=== PATIENT | female | born 1960 | race Caucasian/White ===

== ENCOUNTER 2016-10-20 14:56 | Emergency (ER) | payer SELFPAY ==
[2016-10-20 15:34] VITALS: BP 128/71; PULSE 75; RESP 12; TEMP 98.2; O2SAT 99
--- NOTE | 2016-10-20 16:58 | UCPHY ---
H & P Time Seen by Provider: 10/20/16 16:15 Patient Type: New HPI/ROS: This patient presents with a chief complaint of hearing loss in the left ear which began yesterday evening. She has had some intermittent tenderness in some headache but she denies any URI symptoms such as nasal congestion, sore throat or ear pain. She has noticed that when she chews that she hears it in the opposite right ear but not on the left. Smoking Status: Never smoked Physical Exam: This is a well-developed well-nourished female who is in no acute distress. She is alert, lucid and cooperative. She has normal gait and speech pattern. Pharynx: Normal Nose: Normal Ears: Both auditory canals are widely patent. There is no erythema of the tympanic membranes or any other abnormality that I can appreciate. Maricarmen Oropeza tests lead to a conclusion of sensory neural loss on the left. Constitutional: Initial Vital Signs Temperature (C) 36.8 C 10/20/16 15:28 Heart Rate 75 10/20/16 15:28 Respiratory Rate 12 10/20/16 15:28 Blood Pressure 128/71 H 10/20/16 15:28 O2 Sat (%) 99 10/20/16 15:28 O2 Delivery Mode Room Air Medical Decision Making ED Course/Re-evaluation: I spoke with the PA with [facility] who assures me they can see this patient in the office on Saturday and that treatment with steroids can wait up to 2 weeks. I prefer not to start high-dose steroids at this time. Differential Diagnosis: This patient appears to have a sensory neural hearing loss on the left. The cause at this time is unknown. Departure - Departure Disposition: Home, Routine, Self-Care Clinical Impression: Acute hearing loss of left ear Condition: Good Instructions: Hearing Loss (ED) Additional Instructions: It is important that he follow up with the ear nose and throat office which is listed be low. When you talk with them tell them that you have acute hearing loss and that I have spoken with them concerning your problem. Referrals: [facility] [Provider Group] - As per Instructions Geo Gates MD [Medical Doctor] - As per Instructions - PQRS PQRS Measurement: Not applicable
== END 2016-10-20 17:02 | disposition home or self-care (01) ==
LOC: CED 14:56
DX: H91.92 Unspecified hearing loss, left ear (principal)
CPT/HCPCS: 99203-PO; G0463-PO

== ENCOUNTER 2017-02-24 12:17 | Emergency (ER) | payer OTHER ==
[2017-02-24 12:30] VITALS: BP 126/89; PULSE 95; RESP 18; TEMP 98.2; O2SAT 96
--- NOTE | 2017-02-24 12:41 | EDPHY ---
H & P Time Seen by Provider: 02/24/17 12:32 HPI/ROS: This patient reports sore throat of 24 hours duration after being exposed to someone who was sick with sore throat in [place] last week. She is concerned about potential strep and came in for evaluation. She states the pain was moderate to severe last night, partial relief from Tylenol and over-the -counter throat spray. This morning it is 5/10 intensity. She notes no other associated symptoms except for mild coryza. No other exacerbating or alleviating factors besides what is mentioned above. ROS: Constitutional: No fevers or chills HEENT: No sinus pain or pressure, no ear pain. She has chronic left-sided sensorineural hearing loss that is unchanged Pulmonary: No cough GI: No nausea or vomiting Integumentary: No skin rash 5 point ROS is otherwise negative Past Medical/Surgical History: Sensorineural hearing loss Smoking Status: Never smoked Physical Exam: Physical Exam Vital signs are normal. General: No acute distress HEENT: Nose: Clear discharge bilaterally. No sinus tenderness to percussion. Ears: External canals and tympanic membranes are clear with no erythema or abnormal findings bilaterally. Oropharynx: No erythema or exudates. No dysphonia. No drooling or stridor. Eyes: Pupils equal and react to light. Extraocular motions are intact. Neck: Supple with no meningismus. No lymphadenopathy Lungs: Clear to auscultation bilaterally with no rales, rhonchi or wheeze. No respiratory distress. Cardiac: Regular rate and rhythm with no murmur gallop or rub Skin: No rash or pallor. Neuro: Alert with no focal deficits noted. Initial differential diagnosis: URI with sore throat from postnasal drip, viral pharyngitis, strep pharyngitis Constitutional: Initial Vital Signs Temperature (C) 36.8 C 02/24/17 12:28 Heart Rate 95 02/24/17 12:28 Respiratory Rate 18 02/24/17 12:28 Blood Pressure 126/89 H 02/24/17 12:28 O2 Sat (%) 96 02/24/17 12:28 O2 Delivery Mode Room Air Allergies/Adverse Reactions: azithromycin [From Zithromax] Allergy (Verified 02/24/17 12:27) cephalexin [From Keflex] Allergy (Verified 02/24/17 12:27) latex Allergy (Verified 02/24/17 12:27) Home Medications: Medication Instructions Recorded Ambien 02/24/17 Flexeril 02/24/17 Hormone Replacement Medications 02/24/17 Thyroid 02/24/17 MDM/Departure - MDM Diagnostics: Rapid strep is negative ED Course/Re-evaluation: I counseled the patient regarding viral pharyngitis - Depart Disposition: Home, Routine, Self-Care Clinical Impression: Viral pharyngitis Condition: Good Instructions: Pharyngitis (ED) Additional Instructions: Diagnosis: Viral pharyngitis Your rapid strep test is negative. Plan: Ibuprofen and Tylenol for discomfort Symptoms will typically improve over the course of 3-10 days Return for any significant worsening despite treatment plan Referrals: Tami Campbell MD [Primary Care Provider] - As per Instructions
== END 2017-02-24 12:50 | disposition home or self-care (01) ==
LOC: CED 12:17
DX: J02.8 Acute pharyngitis due to other specified organisms (principal); B97.89 Other viral agents as the cause of diseases classified elsewhere; Z91.040 Latex allergy status
CPT/HCPCS: 87880-PO

== ENCOUNTER 2018-12-06 08:45 | Emergency (ER) | payer OTHER ==
[2018-12-06] MEDS ORDERED: IBUPROFEN 200 MG TAB PO ONE (09:07)
--- NOTE | 2018-12-06 09:36 | EDPHY ---
H & P Time Seen by Provider: 12/06/18 09:15 HPI/ROS: This patient slipped on ice last night while walking landing on outstretched right hand injuring her right wrist with swelling ecchymosis and pain to the right wrist since that time. She describes the pain as 6/10 at baseline worse with movements. No other exacerbating factors. She denies any other injuries associated with this fall. She is accompanied by a friend who drove her here by private vehicle for evaluation. ROS: Constitutional: No complaints new line neuro: No numbness or tingling the affected extremity Musculoskeletal: No other joint injuries from the fall Integumentary: No lacerations abrasions 5 point review of symptoms is performed and otherwise negative with exception of pertinent positives and negatives listed in HPI and ROS Smoking Status: Never smoked Physical Exam: Physical Exam Vital signs are normal. General: No acute distress HEENT: Atraumatic. Eyes: Pupils equal and react to light. Extraocular motions are intact. Lungs: No respiratory distress. Cardiac: Brisk capillary refill is intact throughout. Pulses are 2+ and symmetric in the affected extremity. Skin: No rash or pallor. Extremities: Atraumatic normal except for right wrist Right wrist: Patient has ecchymosis swelling and tenderness to the distal radius with evidence of a slight dinner fork deformity verses dorsal swelling. No ulnar styloid tenderness. No right elbow or shoulder tenderness. Neuro: Alert and oriented x3 with no sensorimotor deficits to the affected extremity. Initial differential diagnosis: Wrist fracture versus sprain versus traumatic hematoma Constitutional: Initial Vital Signs Temperature (C) 36.6 C 12/06/18 08:53 Heart Rate 76 12/06/18 08:53 Respiratory Rate 14 12/06/18 08:53 Blood Pressure 115/59 L 12/06/18 08:53 O2 Sat (%) 99 12/06/18 08:53 O2 Delivery Mode Room Air Allergies/Adverse Reactions: azithromycin [From Zithromax] Allergy (Verified 12/06/18 09:03) cephalexin [From Keflex] Allergy (Verified 12/06/18 09:03) latex Allergy (Verified 12/06/18 09:03) Home Medications: Medication Instructions Recorded Flexeril 02/24/17 Hormone Replacement Medications 02/24/17 Thyroid 02/24/17 traMADol [Ultram 50 mg (*)] 50 - 100 mg PO Q4 PRN #15 tab 12/06/18 MDM/Departure - MDM Diagnostics: Three-view wrist x-rays: Positive for comminuted Colles fracture with min. dorsal displacement, + intra-articular component by my interpretation Imaging Results: Imaging Impressions Wrist X-Ray 12/06/18 09:08 Impression: 1. Complex distal right radial fracture with minimal dorsal displacement of the dorsal components of the fracture. Imaging: I viewed and interpreted images myself Medications Given: Discontinued Medications Ibuprofen (Motrin) 600 mg PO EDNOW ONE Stop: 12/06/18 09:08 Last Admin: 12/06/18 09:13 Dose: 600 mg ED Course/Re-evaluation: Ibuprofen p. O., Ice A placed a call to Dr. Arteaga's orthopoedic office since the patient has seen Dr. Arteaga for prior knee injury in the past. Dr. Arteaga will follow up early this week agrees with current plan of splinting in place. Patient is treated with Tylenol and tramadol in addition to the ibuprofen with further relief of her discomfort Splinting: Orthoglass sugar-tong splint is placed by our connie Garcia with my supervision. Patient is neurovascularly intact post splint application. Discussion: Patient with complex Colles fracture with intra-articular component neurovascularly intact with minimally displacement warranting follow up with Orthopedics-question need for potential ORIF. - Depart Disposition: Home, Routine, Self-Care Clinical Impression: Colles' fracture Qualifiers: Encounter type: initial encounter Fracture type: closed Laterality: right Qualified Code(s): S52.531A - Colles' fracture of right radius, initial encounter for closed fracture Condition: Good Instructions: Wrist Fracture in Adults (ED) Additional Instructions: Diagnosis: Colles fracture Plan: Call Dr. Arteaga his office on Saturday to arrange follow-up appointment for early this week. Ibuprofen, Tylenol and tramadol if needed for pain control. No driving, alcohol or work on tramadol Splint at all times. Keep the splint dry Sling when your up and about Return to the emergency department if he developed unbearable pain or other concerns Referrals: Tami Campbell MD [Primary Care Provider] - As per Instructions Misbah Arteaga MD [Medical Doctor] - As per Instructions
[2018-12-06] MEDS ORDERED: ACETAMINOPHEN 500 MG TAB PO ONE (10:19)
[2018-12-06] MEDS ORDERED: traMADol 50 MG TAB PO ONE (10:19)
[2018-12-06 11:04] VITALS: BP 124/63
== END 2018-12-06 11:02 | disposition home or self-care (01) ==
LOC: CED 08:45
PROC: 2W3CX1Z Immobilization of Right Lower Arm using Splint (ICD-10-PCS; principal; 2018-12-06)
DX: S52.531A Colles' fracture of right radius, initial encounter for closed fracture (principal); W00.0XXA Fall on same level due to ice and snow, initial encounter; Y99.9 Unspecified external cause status; Y92.9 Unspecified place or not applicable; Y93.01 Activity, walking, marching and hiking
CPT/HCPCS: 73110-PO; 99283-ER

== ENCOUNTER 2019-03-21 16:52 | Observation (INO) | payer OTHER | END 2019-03-22 16:43 | disposition home or self-care (01) | LOC: F3N 19:36 ==